=== PATIENT | female | born 1965 | race Caucasian/White ===

== ENCOUNTER → 2016-11-25 | Outpatient (CLI) | payer BC | LOC: CT 10:00 | DX: J38.01 Paralysis of vocal cords and larynx, unilateral (principal); R49.0 Dysphonia | CPT/HCPCS: 71260; J7050; Q9962 ==

== ENCOUNTER → 2016-11-25 | Outpatient (CLI) | payer BC | LOC: SLEEP 21:30 | DX: G47.33 Obstructive sleep apnea (adult) (pediatric) (principal) | CPT/HCPCS: 95810 ==